=== PATIENT | male | born 1995 | race Asian ===

== ENCOUNTER 2017-07-01 18:41 | Emergency (ER) | payer OTHER ==
--- NOTE | 2017-07-01 19:06 | EDPHY ---
HPI/HX/ROS/PE/MDM Narrative: CHIEF COMPLAINT: Cold/flu symptoms. HPI: This patient is a 21 year old male complaining of cold and flu symptoms. One week ago, he began to have cold symptoms including discomfort in his throat and nose. Today, he began to feel worse and developed a headache and inability to focus in class. He felt febrile yesterday but does not today. No shortness of breath, chest pain, vomiting, diarrhea, or other associated symptoms. REVIEW OF SYSTEMS: Aside from elements discussed in the HPI, a comprehensive 10-point review of systems was reviewed and is negative. PMH: Denies. SOCIAL HISTORY: Friend at bedside. Student at [employer]. Originally from [place]. PHYSICAL EXAM: General:Patient is alert, in no acute distress. ENT:Eyes are normal to inspection. ENT inspection normal. Neck: Normal inspection. Full range of motion. Respiratory:No respiratory distress. Breath sounds normal bilaterally. Cardiovascular: Regular rate and rhythm. Strong peripheral pulses. Normal cap refill. Abdomen:The abdomen is nontender to palpation. There are no peritoneal signs. There are normal bowel sounds. Back: Normal to inspection. No tenderness to palpation. Skin: Normal color. No rash. Warm and dry. Extremities: Normal appearance. Full range of motion. Neuro: Oriented x3. Normal motor function. Normal sensory function. 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 Exam unremarkable, no pharyngeal erythema or exudates. Plan for flu swab and strep test. Strep negative. Flu swab negative. Positive for RSV. 20:00 Reassessed patient. He is relieved that his strep and flu tests are negative. Plan to discharge home in good condition. Follow up and return precautions discussed. The patient is comfortable with this plan. - Data Points Laboratory Results: 07/01/17 07/01/17 07/01/17 Unknown 19:10 19:06 Nasal Influenza A PCR Pending Nasal Influenza B PCR Pending Group A Strep Screen NEGATIVE (NEGATIVE) Group A Strep DNA Pending General Time Seen by Provider: 07/01/17 18:54 Initial Vital Signs: Initial Vital Signs Temperature (C) 36.6 C 07/01/17 18:43 Heart Rate 86 07/01/17 18:43 Respiratory Rate 16 07/01/17 18:43 Blood Pressure 133/81 H 07/01/17 18:43 O2 Sat (%) 97 02/19/18 18:43 Allergies/Adverse Reactions: No Known Allergies Allergy (Unverified 02/05/16 19:43) Departure - Departure Disposition: Home, Routine, Self-Care Clinical Impression: RSV (respiratory syncytial virus infection) Condition: Good Instructions: Respiratory Syncytial Virus (ED), Upper Respiratory Infection (ED ) Additional Instructions: 1. Follow up with a primary care provider in 2-3 days for symptoms unresolved. 2. Stay well hydrated, drinking plenty of fluids. 3. Return to the emergency department for high fever, severe headache or neck pain, difficulty breathing, abdominal pain, rash or other worsening of condition. Referrals: [facility],. [Clinic] - As per Instructions Report Scribed for: Santos Garay Report Scribed by: Alexandra Lyons Date of Report: 07/01/17 Time of Report: 19:06 Physician Review and Approval Statement: Portions of this note were transcribed by an ED scribe. I personally performed the history, physical exam, and medical decision making; and confirm the accuracy of the information in the transcribed note.
[2017-07-01 20:15] VITALS: BP 122/81; PULSE 74; RESP 18; TEMP 98.2; O2SAT 95
== END 2017-07-01 20:14 | disposition home or self-care (01) ==
DX: R51 Headache (principal); B97.4 Respiratory syncytial virus as the cause of diseases classified elsewhere